=== PATIENT | female | born 1985 | race Caucasian/White ===

== ENCOUNTER 2018-06-17 14:40 | Emergency (ER) | payer MEDICAID, OTHER ==
[2018-06-17 14:40] VITALS: BMI 25.4
[2018-06-17 14:54] VITALS: BP 96/61; PULSE 77; RESP 18; TEMP 98.1; O2SAT 99
[2018-06-17] MEDS ORDERED: PROPARACAINE/FLUORESCEIN SOD 100 DROP/5 ML BOTTLE OS STA (16:07)
--- NOTE | 2018-06-17 16:12 | ED PDOC ---
HPI: Eye Injury/Pain Time Seen by Provider: 06/17/18 15:50 Chief Complaint (Nursing): Eye Problem Chief Complaint (Provider): BILATERAL EYE IRRITATION History Per: Patient (32 Y/O FEMALE HERE WITH BILATERAL EYE IRRITATION NOTED X 1 MONTH ASSOCIATED WITH EXCESSIVE TEAR/HEADACHE. DOES NOT WEAR GLASSES.) Past Medical History Reviewed: Historical Data, Nursing Documentation, Vital Signs Vital Signs: Last Vital Signs Temp 98.1 F 06/17/18 14:50 Pulse 77 06/17/18 14:50 Resp 18 06/17/18 14:50 BP 96/61 L 06/17/18 14:50 Pulse Ox 99 06/17/18 14:50 - Family History Family History: States: No Known Family Hx - Home Medications Home Medications: Ambulatory Orders Medication Instructions Recorded Ca/Cholecalciferol/Fe/Folic 1 1 tab PO DAILY 09/24/15 [Basic's Vitamins] Cetirizine HCl [Zyrtec] 10 mg PO DAILY #15 tab.rapdis 06/17/18 Olopatadine 0.1% Opht [Patanol 5 1 drop OU BID #1 bottle 06/17/18 Ml] - Allergies Allergies/Adverse Reactions: Allergies Allergy/AdvReac Type Severity Reaction Status Date / Time naproxen [From Aleve] Allergy ITCHING Verified 06/17/18 15:19 Review of Systems ROS Statement: Except As Marked, All Systems Reviewed And Found Negative Physical Exam - Reviewed Nursing Documentation Reviewed: Yes Vital Signs Reviewed: Yes - Physical Exam Appears: Positive for: Well, Non-toxic, No Acute Distress Head Exam: Positive for: ATRAUMATIC, NORMAL INSPECTION, NORMOCEPHALIC Skin: Positive for: Normal Color, Warm, DRY Eye Exam: Positive for: EOMI, Normal appearance, PERRL ENT: Positive for: Normal ENT Inspection Neck: Positive for: Normal, Painless ROM Cardiovascular/Chest: Positive for: Regular Rate, Rhythm Respiratory: Positive for: CNT, Normal Breath Sounds Gastrointestinal/Abdominal: Positive for: Normal Exam, Soft Back: Positive for: Normal Inspection Extremity: Positive for: Normal ROM Neurologic/Psych: Positive for: Alert, Oriented - ECG O2 Sat by Pulse Oximetry: 99 Disposition - Clinical Impression Clinical Impression: Allergic conjunctivitis - Patient ED Disposition Is Patient to be Admitted: No - Disposition Referrals: [facility] [Outside] Disposition: Routine/Home Disposition Time: 16:09 Condition: FAIR Prescriptions: Cetirizine HCl [Zyrtec] 10 mg PO DAILY #15 tab.rapdis Olopatadine 0.1% Opht [Patanol 5 Ml] 1 drop OU BID #1 bottle Instructions: Conjunctivitis (Noninfectious Pinkeye) (DC), Seasonal Allergies in Adults Forms: [facility] ED School/Work Excuse Print Language: GUYANESE
[2018-06-17] MEDS ORDERED: PROPARACAINE/FLUORESCEIN SOD 100 DROP/5 ML BOTTLE ONE (16:17)
== END 2018-06-17 16:39 | disposition home or self-care (01) ==
LOC: H.ER 14:40
DX: H10.10 Acute atopic conjunctivitis, unspecified eye (principal)

== ENCOUNTER 2018-12-02 16:35 | Emergency (ER) | payer SELFPAY ==
[2018-12-02 17:07] VITALS: BP 110/72; PULSE 84; RESP 16; TEMP 98.4; O2SAT 100; BMI 24.8
--- NOTE | 2018-12-02 18:25 | ED PDOC ---
HPI: Back Time Seen by Provider: 12/02/18 17:52 Chief Complaint (Nursing): Back Pain Chief Complaint (Provider): Non Traumatic Back Pain History Per: Patient History/Exam Limitations: no limitations Onset/Duration Of Symptoms: Days (one to two) Current Symptoms Are (Timing): Better Quality Of Discomfort: Unable To Describe, "Pain" Severity: Mild (Pt presents to the ED complaining of two days of back pain of the lumbar and the cervical region; the patient denies trauma or other diagnosis other than thyroid issues. Pt denies NVD and urinary symptoms) Past Medical History Reviewed: Historical Data, Nursing Documentation, Vital Signs Vital Signs: Last Vital Signs Temp 98.4 F 12/02/18 17:06 Pulse 84 12/02/18 17:06 Resp 16 12/02/18 17:06 BP 110/72 12/02/18 17:06 Pulse Ox 100 12/02/18 17:06 - Family History Family History: States: Unknown Family Hx - Home Medications Home Medications: Ambulatory Orders Medication Instructions Recorded Ca/Cholecalciferol/Fe/Folic 1 1 tab PO DAILY 09/24/15 [Basic's Vitamins] Cetirizine HCl [Zyrtec] 10 mg PO DAILY #15 tab.rapdis 06/17/18 Olopatadine 0.1% Opht [Patanol 5 1 drop OU BID #1 bottle 06/17/18 Ml] Cyclobenzaprine [Flexeril] 10 mg PO TID #27 tab 12/02/18 Diclofenac Potassium 50 mg PO BID #20 tablet 12/02/18 - Allergies Allergies/Adverse Reactions: Allergies Allergy/AdvReac Type Severity Reaction Status Date / Time naproxen [From Aleve] Allergy ITCHING Verified 06/17/18 15:19 Review of Systems ROS Statement: Except As Marked, All Systems Reviewed And Found Negative Musculoskeletal: Positive for: Back Pain Physical Exam - Reviewed Nursing Documentation Reviewed: Yes Vital Signs Reviewed: Yes - Physical Exam Appears: Positive for: Well, Non-toxic, No Acute Distress, Uncomfortable Head Exam: Positive for: ATRAUMATIC, NORMAL INSPECTION Skin: Positive for: Normal Color, Warm, Dry. Negative for: Diaphoresis, Pallor, Rash Eye Exam: Positive for: Normal appearance, PERRL. Negative for: Nystagmus, Periorbital swelling, Periorbital tenderness Neck: Positive for: Normal, Painless ROM, Supple. Negative for: Decreased ROM Cardiovascular/Chest: Positive for: Regular Rate, Rhythm Respiratory: Positive for: Normal Breath Sounds Pulses-Carotid (L): 2+ Pulses-Carotid (R): 2+ Pulses-Radial (L): 2+ Pulses-Radial (R): 2+ Back: Positive for: Normal Inspection, Muscle Spasm. Negative for: L CVA Tenderness, R CVA Tenderness, Vertebral Tenderness, Decreased ROM Extremity: Positive for: Normal ROM. Negative for: Tenderness, Pedal Edema, Calf Tenderness, Capillary Refill, Deformity, Swelling - ECG O2 Sat by Pulse Oximetry: 100 Medical Decision Making Medical Decision Making: I: back pain due to spasm P: Cervical and Lumbar XR offered at pt request XR are clear of any pathology on a wet read by my self Pt will be discharged with a referral to clinic (she has no PMD) and diclofenac as well as cyclobenzaprine The patient is stable for discharge Disposition - Clinical Impression Clinical Impression: Low back pain - Patient ED Disposition Is Patient to be Admitted: No Doctor Will See Patient In The: Office Counseled Patient/Family Regarding: Diagnosis, Need For Followup - Disposition Referrals: [facility] [Outside] Disposition: Routine/Home Disposition Time: 20:32 Condition: STABLE Prescriptions: Cyclobenzaprine [Flexeril] 10 mg PO TID #27 tab Diclofenac Potassium 50 mg PO BID #20 tablet Instructions: Low Back Pain in Adults, Low Back Pain (DC) Forms: [employer] (Israeli), [employer] (Kinyarwanda) Print Language: KINYARWANDA
--- NOTE | 2018-12-03 09:23 | RAD ---
Date of service: 12/02/2018 PROCEDURE: Radiographs of the Lumbar Spine. HISTORY: vertebral tenderness COMPARISON: No prior. FINDINGS: BONES: Normal alignment. No listhesis. No fracture. DISC SPACES: Unremarkable. OTHER FINDINGS: None. IMPRESSION: Unremarkable radiographs of the lumbar spine.
--- NOTE | 2018-12-03 18:33 | RAD ---
Date of service: 12/02/2018 PROCEDURE: Cervical Spine Radiographs. HISTORY: Pain. COMPARISON: None available. FINDINGS: BONES: Reversal cervical curvature. No fracture or spondylolisthesis identified. The odontoid process appears intact as well as C1-2 articulation. Craniocervical junction appears unremarkable. DISC SPACES: Normal. SOFT TISSUES: Normal. No prevertebral soft tissue swelling. OTHER FINDINGS: None. IMPRESSION: Reversal of cervical curvature. No definite fracture or spondylolisthesis appreciable.
== END 2018-12-02 20:45 | disposition home or self-care (01) ==
LOC: H.ER 16:35
DX: M54.5 Low back pain (principal); Z88.6 Allergy status to analgesic agent
CPT/HCPCS: 72040; 72114; 81025; 96372; 99282; J1885

== ENCOUNTER 2018-12-03 14:59 | Emergency (ER) | payer SELFPAY ==
[2018-12-03 15:00] VITALS: BMI 24.8
--- NOTE | 2018-12-03 17:05 | ED PDOC ---
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 Patient was seen in ED last night for right sided neck pain and lower back pain, discharged after improvement of symptoms with pain medications and preliminary negative read of c-spine XR. She notes this morning receiving a call from the hospital earlier stating she needed to come back in for repeat XRs because her hair was obstructing the views of the ones taken. Of note, reports improvement of pain since last night. Denies recent falls / trauma, fever, headache, dizziness, N/V/D, visual changes. PMD: none provided Past Medical History Reviewed: Historical Data, Nursing Documentation, Vital Signs Vital Signs: Last Vital Signs Temp 98.1 F 12/03/18 15:39 Pulse 78 12/03/18 15:39 Resp 16 12/03/18 15:39 BP 104/62 12/03/18 15:39 Pulse Ox 100 12/03/18 15:39 - Medical History PMH: No Chronic Diseases - Family History Family History: States: Unknown Family Hx - Living Arrangements Living Arrangements: With Family - Home Medications Home Medications: Ambulatory Orders Medication Instructions Recorded Ca/Cholecalciferol/Fe/Folic 1 1 tab PO DAILY 09/24/15 [Basic's Vitamins] Cetirizine HCl [Zyrtec] 10 mg PO DAILY #15 tab.rapdis 06/17/18 Olopatadine 0.1% Opht [Patanol 5 1 drop OU BID #1 bottle 06/17/18 Ml] Cyclobenzaprine [Flexeril] 10 mg PO TID #27 tab 12/02/18 Diclofenac Potassium 50 mg PO BID #20 tablet 12/02/18 - Allergies Allergies/Adverse Reactions: Allergies Allergy/AdvReac Type Severity Reaction Status Date / Time naproxen [From Aleve] Allergy ITCHING Verified 12/03/18 15:41 Physical Exam - Reviewed Nursing Documentation Reviewed: Yes Vital Signs Reviewed: Yes - Physical Exam Comments: GENERAL APPEARANCE: Patient is awake, alert, oriented x 3, in no acute distress. Resting comfortably. SKIN: Warm, dry; (-) cyanosis. ENMT: Mucous membranes moist. Airway patent, (-) stridor. CHEST AND RESPIRATORY: (-) rales, (-) rhonchi, (-) wheezes; breath sounds equal bilaterally. Respirations even and nonlabored. HEART AND CARDIOVASCULAR: (-) irregularity NECK: Supple, FROM (+) right paracervical tenderness with mild spasm, (-) direct bony tenderness, (-) deformity. EXTREMITIES: FROM throughout (-) deformity. (+) right trapezius tenderness. Distal pulses good bilaterally. Sensation intact throughout. NEURO AND PSYCH: Mental status as above. Gait: steady. Speech: clear. (-) facial asymmetry - ECG O2 Sat by Pulse Oximetry: 100 (RA) Pulse Ox Interpretation: Normal Medical Decision Making Medical Decision Making: Time: 1699 Initial Impression: acute neck pain, muscle spasm in neck Initial Plan: --C-spine XR --Toradol 30mg IM --Reevaluation 1824 Cervical XR: no acute disease as read by Gabriella MCLEOD On re-evaluation, patient reports improvement of symptoms. On exam, patient remains AAOx3, in no acute distress. Vitals stable. Lab/Diagnostic results d/w the patient in great detail. Diagnosis of acute neck pain/muscle spasm d/w the patient. Based on history, exam and diagnostic results, plan will be for outpatient foll ow up. Continue meds from previous ED visit. Patient instructed to follow-up with pmd / referral provided / the clinic in 1- 2 days without fail. Advised to take medication as prescribed. Return to the emergency room at any time for any new or worsening symptoms. Patient states she fully agrees with and understands discharge instructions. States that she agrees with the plan and disposition. Verbalized and repeated discharge instructions and plan. I have given the patient opportunity to ask any additional questions. Scribe Attestation: Documented by Debbie Awan, acting as a scribe for Mildred Quiroz PA-C Provider Scribe Attestation: All medical record entries made by the Scribe were at my direction and personally dictated by me. I have reviewed the chart and agree that the record accurately reflects my personal performance of the history, physical exam, medical decision making, and the department course for this patient. I have also personally directed, reviewed, and agree with the discharge instructions and disposition. Disposition - Clinical Impression Clinical Impression: Neck pain, Muscle spasms of neck - Patient ED Disposition Is Patient to be Admitted: No Counseled Patient/Family Regarding: Studies Performed, Diagnosis, Need For Followup - Disposition Referrals: primary, doctor [Other] Brent Velazco MD [Staff Provider] - Disposition: Routine/Home Disposition Time: 18:25 Condition: STABLE Additional Instructions: La atencin mdica de emergencia que recibi hoy se dirigi a daly sntomas agudos. Si le recetaron algn medicamento, llnelo y tmelo segn las indicaciones. Los sntomas pueden tardar varios trujillo en resolverse. Regrese al Departamento de Emergencias si daly sntomas empeoran, no mejoran o si tiene otros problemas. Comunquese con gordillo mdico dentro de 2 trujillo para jake nueva evaluacin y mis un seguimiento o llame a arabella de los mdicos / clnicas a los que mcnally sido referido y que figuran en el formulario de Informacin de visita al paciente que se incluye en gordillo paquete de dale. Lleve todos los documentos que le entregaron al momento del dale junto con todos los medicamentos que est tomando para gordillo visita de seguimiento. Nuestro tratamiento no puede reemplazar la atencin mdica continua por parte de un proveedor de atencin primaria (PCP) fuera del departamento de emergencias. Instructions: Neck Pain, Muscle Spasms (DC), Generalized Neck Pain Forms: [facility] (Tongan) Print Language: ARMENIAN - PODimitris Present On Arrival: None
[2018-12-03 21:01] VITALS: BP 106/72; PULSE 70; RESP 18; TEMP 97.9
[2018-12-04 16:47] VITALS: O2SAT 100
== END 2018-12-03 21:00 | disposition home or self-care (01) ==
LOC: H.ER 14:59
DX: M54.2 Cervicalgia (principal); M62.838 Other muscle spasm; Z88.6 Allergy status to analgesic agent
CPT/HCPCS: 96372; 99282; J1885